=== PATIENT | female | born 1990 | race Two or more races ===

== ENCOUNTER 2016-09-02 08:00 | Outpatient (CLI) | payer OTHER ==
[2016-09-02 17:37] LABS: BILIRUBIN,URINE NEGATIVE (NEGATIVE)
[2016-09-02 18:16] LABS: UR CULTURE IF IND NOT INDICATED
== END 2016-09-02 23:59 ==
LOC: LAB.R 08:00
PROVIDERS: ATTEND Physician Assistant Medical
DX: R30.0 Dysuria (principal)
CPT/HCPCS: 81001; 87086

== ENCOUNTER 2016-09-29 08:00 | Outpatient (CLI) | payer OTHER | END 2016-09-29 23:59 | disposition home or self-care (01) | LOC: LAB.F 08:00 | PROVIDERS: ATTEND Physician Assistant Medical | DX: A56.09 Other chlamydial infection of lower genitourinary tract (principal) | CPT/HCPCS: 87491; 87591 ==

== ENCOUNTER 2017-03-09 08:15 | Outpatient (CLI) | payer OTHER ==
--- NOTE | 2017-03-11 15:46 | Ultrasound Report ---
OB ANATOMY SCAN: 03/09/2017 CLINICAL INDICATION: anatomy. TECHNIQUE: Real-time scanning was performed with office services representative static images obtained. LAST MENSTRUAL PERIOD: 10/06/2016 Clinical Age: 22 weeks 0 days US Age: 21 weeks 5 days EFW Hadlock: 478 EFW% Hadlock: 50% Heart Rate: 148 bpm EDC: 07/13/2017 US EDC: 07/15/2017 BPD Hadlock: 21 weeks 1 day; Mean mm 50 HC Hadlock: 21 weeks 4 days; Mean mm 194 AC Hadlock: 22 weeks 5 days; Mean mm 179 FL Hadlock: 21 weeks 4 days; Mean mm 36 Presentation: breech. Placental Location: anterior Cervical Length: 3 cm Amniotic Fluid: 17.0 cm There is a single viable intrauterine gestation, in breech presentation. heart rate is 148 BPM. The placenta is anterior, without evidence of previa. By size, the fetus measures 21 weeks 5 days (22 weeks 0 days by LMP). The following anatomic structures were visualized and appear normal: The intracranial contents, including the ventricles and posterior fossa; the lips and orbits; the spine; the heart, including 4 chamber view and outflow tracts, and diaphragm; the abdominal contents, including the stomach, the bilateral kidneys, and urinary bladder, as well as a normal 3 vessel cord insertion; 4 limbs. No free fluid or adnexal lesion is appreciated. IMPRESSION: Single viable intrauterine gestation, with size in keeping with LMP dating. Normal anatomic survey. TD: 03/09/2017 17:22 [email or web address]
== END 2017-03-09 08:16 | disposition home or self-care (01) ==
LOC: DI 08:15
PROVIDERS: ATTEND Midwife
DX: Z36.9 Encounter for antenatal screening, unspecified (principal)
CPT/HCPCS: 76811